=== PATIENT | male | born 1940 | race Caucasian/White ===

== ENCOUNTER 2018-08-03 12:15 | Outpatient (CLI) | payer MEDICARE, MEDICAID ==
[~2018-08-03 12:15] MED LIST: LEVO25TA2 PO
== END 2018-08-03 23:59 | disposition home or self-care (01) ==
LOC: CARD DIAG 12:15
PROVIDERS: ATTEND Internal Medicine Critical Care Medicine
DX: I08.8 Other rheumatic multiple valve diseases (principal); J98.4 Other disorders of lung; Z88.0 Allergy status to penicillin; Z91.041 Radiographic dye allergy status; Z91.011 Allergy to milk products; Z88.8 Allergy status to other drugs, medicaments and biological substances
CPT/HCPCS: 93306

== ENCOUNTER 2020-02-06 12:40 | Observation (INO) | payer MEDICARE, MEDICAID ==
[~2020-02-06] VITALS: Ht 170.2 cm; Wt 91.4 kg
[2020-02-06] MEDS ORDERED: aspirin 81mg tab.chew PO ONE (13:15)
[2020-02-06 13:27] LABS: BASOPHILS % (AUTO) 0.9 % (0-1); EOSINOPHILS # (AUTO) 0.3 X10'3 (0-0.9); EOSINOPHILS % (AUTO) 4.4 % (0-6); HEMATOCRIT 37.8 % (42.0-52.0); HEMOGLOBIN 12.7 g/dl (14.0-17.9); LYMPHOCYTES # (AUTO) 2.1 X10'3 (1.1-4.8); LYMPHOCYTES % (AUTO) 36.6 % (21-51); MEAN CORPUSCULAR HEMOGLOBIN 32.7 PG (27.0-31.0); MEAN CORPUSCULAR HGB CONC 33.6 g/dL (33.0-36.5); MEAN CORPUSCULAR VOLUME 97.4 FL (78-98); MEAN PLATELET VOLUME 8.3 FL (7.4-10.4); MONOCYTES # (AUTO) 0.4 X10'3 (0-0.9); MONOCYTES % (AUTO) 6.4 % (2-12); NEUTROPHILS % (AUTO) 51.7 % (42-75); PLATELET COUNT 209 X10'3 (140-440); RED BLOOD COUNT 3.88 X10'6 (4.70-6.10); WHITE BLOOD COUNT 5.8 X10'3 (4.5-11.0)
[2020-02-06] MEDS: nitroGLYCERIN 0.4mg SUBLingual tab SL PRN ×3 (13:28→13:52)
[2020-02-06] MEDS ORDERED: ondansetron 4mg rapidly disintigrating tab PO ONE (13:30)
[2020-02-06 13:44] LABS: ALANINE AMINOTRANSFERASE 27 U/L (12-78); ALBUMIN 3.5 G/DL (3.4-5.0); ALBUMIN/GLOBULIN RATIO 0.9 (1.1-1.5); ALKALINE PHOSPHATASE 62 IU/L (46-116); ANION GAP 7 (8-16); ASPARTATE AMINO TRANSFERASE 19 U/L (10-37); BILIRUBIN,TOTAL 0.3 MG/DL (0.1-1.0); BLOOD UREA NITROGEN 19 MG/DL (7-18); CALCIUM 8.6 MG/DL (8.5-10.1); CHLORIDE 104 MMOL/L (99-107); CREATININE 1.36 MG/DL (0.60-1.10); GLUCOSE 101 MG/DL (70-104); SODIUM 139 MMOL/L (135-145); TOTAL CARBON DIOXIDE 27.9 MMOL/L (24-32); TOTAL PROTEIN 7.2 G/DL (6.4-8.2); eGFR 50 ML/MIN
--- NOTE | 2020-02-06 13:50 | NUR ---
PT STARTES THAT HIS CHEST PAIN IS 5/10 BUT IS IMPROVING A LITTLW SINCE THE SECOND DOSE OF NITRO WAS GIVEN. dR. MAN WARRENEYS A THIRD DOSE OF NITRO, WILL CONTINUE TO MONITOR
[2020-02-06] MEDS ORDERED: HYDROcodone/acetaminophen 5mg/325mg tablet PO PRN (14:40)
[2020-02-06] MEDS ORDERED: morphine 2 MG/ML inj. syringe IV PRN ×2 (14:40)
[2020-02-06] MEDS ORDERED: mag hydrox/Alum hydrox/simeth 30ml oral suspension PO PRN (14:40)
[2020-02-06] MEDS ORDERED: nitroGLYCERIN 0.4mg SUBLingual tab SL PRN ×2 (14:40→15:45)
[2020-02-06] MEDS ORDERED: magnesium hydroxide 30ml (MOM) UD suspension PO PRN (14:40)
[2020-02-06] MEDS ORDERED: ondansetron/PF 4mg/2ml inj IV PRN (14:40)
[2020-02-06] MEDS ORDERED: acetaminophen 325mg tablet PO PRN ×2 (14:40)
[2020-02-06 15:04] LABS: D-DIMER 0.96 MG/L FEU (0-0.50)
[2020-02-06] MEDS ORDERED: GABA300C PO (15:22)
[2020-02-06] MEDS ORDERED: CYAN500T64 PO (15:22)
[2020-02-06] MEDS ORDERED: LEVO25TA7 PO (15:22)
[2020-02-06] MEDS ORDERED: CHOL20002 PO (15:22)
[2020-02-06] MEDS ORDERED: HYDR-4353 PO (15:22)
[2020-02-06] MEDS ORDERED: metoprolol tartrate 1mg/ml inj IV PRN (15:45)
[2020-02-06] MEDS ORDERED: aminophylline 250mg/10ml inj. IV PRN (15:45)
[2020-02-06] MEDS ORDERED: regadenoson 0.4mg/5ml syringe IV PRN (15:50)
[2020-02-06 16:15] VITALS: BP 140/70
--- NOTE | 2020-02-06 16:53 | NUR ---
PAGER ID: [phone] MESSAGE: [phone]. pt. Bola Cisneros. 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 do you want to order the overnight prep for his CTA of chest? please advise. Palmira [phone]
[2020-02-06] MEDS: gabapentin 300mg capsule PO SCH (17:11)
[2020-02-06] MEDS: normal saline 1000ml 1,000 ML IV SCH ×2 (17:12→22:04)
[2020-02-06 18:00] VITALS: BP 137/81
--- NOTE | 2020-02-06 18:42 | NUR ---
Problems reprioritized. Patient report given, questions answered & plan of care reviewed with ELISA Montilla.
[2020-02-06] MEDS ORDERED: diphenhydrAMINE 25mg capsule PO ONE (19:10)
[2020-02-06] MEDS: prednisone 10mg tablet PO PRN (20:59)
[2020-02-06 22:00] VITALS: BP 146/66
[2020-02-07] VITALS (13 sets, daily range): BP systolic 134–169; BP diastolic 66–85
[2020-02-07] MEDS: gabapentin 300mg capsule PO SCH ×2 (00:29→08:01)
[2020-02-07] MEDS: normal saline 1000ml 1,000 ML IV SCH ×2 (00:30→04:01)
[2020-02-07 01:34] LABS: BASOPHILS # (AUTO) 0.1 X10'3 (0-0.2); BASOPHILS % (AUTO) 1.3 % (0-1); EOSINOPHILS % (AUTO) 0.3 % (0-6); HEMATOCRIT 40.4 % (42.0-52.0); HEMOGLOBIN 13.6 g/dl (14.0-17.9); LYMPHOCYTES # (AUTO) 1.2 X10'3 (1.1-4.8); LYMPHOCYTES % (AUTO) 12.8 % (21-51); MEAN CORPUSCULAR HGB CONC 33.8 g/dL (33.0-36.5); MEAN CORPUSCULAR VOLUME 97.7 FL (78-98); MEAN PLATELET VOLUME 8.6 FL (7.4-10.4); MONOCYTES # (AUTO) 0.1 X10'3 (0-0.9); MONOCYTES % (AUTO) 0.9 % (2-12); NEUTROPHILS # (AUTO) 7.7 X10'3 (1.8-7.7); NEUTROPHILS % (AUTO) 84.7 % (42-75); PLATELET COUNT 197 X10'3 (140-440); RED BLOOD COUNT 4.13 X10'6 (4.70-6.10); RED CELL DISTRIBUTION WIDTH 12.7 % (11.5-14.5); WHITE BLOOD COUNT 9.1 X10'3 (4.5-11.0)
[2020-02-07 01:38] LABS: ALBUMIN 3.5 G/DL (3.4-5.0); ANION GAP 8 (8-16); BLOOD UREA NITROGEN 17 MG/DL (7-18); BUN/CREATININE RATIO 14.3 (5.4-32.0); CALCIUM 8.6 MG/DL (8.5-10.1); CHLORIDE 105 MMOL/L (99-107); CHOL/HDL RATIO 4.1 (0.00-4.99); CHOLESTEROL 232 MG/DL (0-200); CREATININE 1.19 MG/DL (0.60-1.10); GLUCOSE 113 MG/DL (70-104); HDL CHOLESTEROL 56 MG/DL (35-60); LDL CHOLESTEROL 137 MG/DL (50-100); SODIUM 140 MMOL/L (135-145); TRIGLYCERIDES 127 MG/DL (20-135); eGFR 59 ML/MIN
[2020-02-07 01:39] LABS: POTASSIUM 4.4 MMOL/L (3.5-5.1)
[2020-02-07] MEDS: prednisone 10mg tablet PO PRN ×2 (04:01→10:51)
--- NOTE | 2020-02-07 06:07 | NUR ---
Patient in room MED 313. I have received report from ELISA Newton and had the opportunity to ask questions and assume patient care.
--- NOTE | 2020-02-07 06:10 | NUR ---
Problems reprioritized. Patient report given, questions answered & plan of care reviewed with Palmira PÉREZ.
--- NOTE | 2020-02-07 06:26 | NUR ---
non food receiving clerk: I have reviewed and agree with interventions, assessments performed and documented by Benny.
[2020-02-07] MEDS ORDERED: levoTHYROXINE 25mcg tablet PO SCH (08:00)
[2020-02-07] MEDS ORDERED: vitamin D (cholecalciferol) 1,000 unit tablet PO SCH (08:00)
[2020-02-07] MEDS ORDERED: cyanocobalamin 500mcg tablet PO SCH (08:00)
[2020-02-07] MEDS ORDERED: aspirin 81mg tab.chew PO SCH (08:00)
[2020-02-07] MEDS ORDERED: iohexol 350MG/ML 100ml bottle IV ONE (11:30)
--- NOTE | 2020-02-07 13:01 | NUR ---
PAGER ID: [phone] MESSAGE: [phone] Daivd Amelia: Small, nonocclusive acute pulmonary embolism in a proximal left upper lobe pulmonary artery. per CT ELISA Lanza Ext [phone]
[2020-02-07] MEDS ORDERED: apixaban 5mg tablet PO SCH (13:45)
[2020-02-07] MEDS ORDERED: APIX5TAB3 PO (15:54)
--- NOTE | 2020-02-07 17:02 | NUR ---
Discharged. PIV out. Safe per Dr Agarwal for DC. Meds called in and educated on meds. Educated on PE and follow-up. Wheeled out to ride.
[2020-02-07] MEDS ORDERED: gabapentin 400mg capsule PO SCH (20:00)
[2020-02-11 09:12] LABS: ANTITHROMBIN ACTIVITY 110 % (75-135); ANTITHROMBIN ANTIGEN 95 % (72-124); PROTEIN S, FREE 112 % (57-157); PROTEIN S, TOTAL 97 % (60-150)
== END 2020-02-07 17:03 | disposition home or self-care (01) ==
LOC: ER 12:40 → ED HOLD 14:38 → MED 3N 15:57
PROVIDERS: ADMIT Internal Medicine; ATTEND Internal Medicine
DX: R07.89 Other chest pain (principal); R42 Dizziness and giddiness; E03.9 Hypothyroidism, unspecified; G89.29 Other chronic pain; N17.9 Acute kidney failure, unspecified; I10 Essential (primary) hypertension; I20.9 Angina pectoris, unspecified; Z90.49 Acquired absence of other specified parts of digestive tract; Z85.038 Personal history of other malignant neoplasm of large intestine; Z96.659 Presence of unspecified artificial knee joint; Z79.01 Long term (current) use of anticoagulants; Z79.899 Other long term (current) drug therapy; Z88.0 Allergy status to penicillin; Z91.011 Allergy to milk products; Z88.8 Allergy status to other drugs, medicaments and biological substances; Z91.048 Other nonmedicinal substance allergy status; R06.02 Shortness of breath; R00.1 Bradycardia, unspecified
CPT/HCPCS: 36415; 71045; 71275; 74175; 78452; 80048; 80053; 80061; 81479; 83880; 83891; 83894; 83898; 84484; 85025; 85300; 85301; 85303; 85305; 85306; 85379; 86146; 86147; 87081; 93005; 93017; 96360; 96361; 99285; A9500; G0378; J2785; J7030; J7512; Q0163; Q9967; 99284

== ENCOUNTER 2020-11-19 10:07 | Emergency (ER) | payer MEDICARE, MEDICAID ==
[~2020-11-19] VITALS: Ht 165.1 cm; Wt 90.9 kg
[~2020-11-19 10:07] MED LIST changes: +APIX5TAB3 PO; +CHOL20002 PO; +CYAN500T71 PO; +GABA300C PO; +HYDR-4353 PO; -LEVO25TA2 PO; +LEVO25TA7 PO
[2020-11-19] MEDS ORDERED: ondansetron/PF 4mg/2ml inj IV ONE (10:15)
[2020-11-19] MEDS ORDERED: normal saline 1000ML IV soln IVB ONE (10:15)
--- NOTE | 2020-11-19 10:52 | NUR ---
TO CT SCAN.
[2020-11-19 10:55] LABS: BASOPHILS % (AUTO) 0.3 % (0-1); EOSINOPHILS # (AUTO) 0.2 X10'3 (0-0.9); EOSINOPHILS % (AUTO) 3.2 % (0-6); HEMATOCRIT 37.8 % (42.0-52.0); HEMOGLOBIN 12.7 g/dl (14.0-17.9); LYMPHOCYTES # (AUTO) 1.8 X10'3 (1.1-4.8); LYMPHOCYTES % (AUTO) 32.6 % (21-51); MEAN CORPUSCULAR HGB CONC 33.5 g/dL (33.0-36.5); MEAN CORPUSCULAR VOLUME 98.5 FL (78-98); MEAN PLATELET VOLUME 8.1 FL (7.4-10.4); MONOCYTES # (AUTO) 0.4 X10'3 (0-0.9); NEUTROPHILS # (AUTO) 3.2 X10'3 (1.8-7.7); NEUTROPHILS % (AUTO) 56.9 % (42-75); PLATELET COUNT 193 X10'3 (140-440); RED BLOOD COUNT 3.84 X10'6 (4.70-6.10); RED CELL DISTRIBUTION WIDTH 12.7 % (11.5-14.5); WHITE BLOOD COUNT 5.6 X10'3 (4.5-11.0)
[2020-11-19 11:04] LABS: ALANINE AMINOTRANSFERASE 26 U/L (12-78); ALBUMIN 3.5 G/DL (3.4-5.0); ALBUMIN/GLOBULIN RATIO 1.1 (1.1-1.5); ALKALINE PHOSPHATASE 51 IU/L (46-116); ANION GAP 6 (8-16); ASPARTATE AMINO TRANSFERASE 27 U/L (10-37); BILIRUBIN,TOTAL 0.2 MG/DL (0.1-1.0); BLOOD UREA NITROGEN 14 MG/DL (7-18); BUN/CREATININE RATIO 11.7 (5.4-32.0); CALCIUM 8.2 MG/DL (8.5-10.1); CHLORIDE 106 MMOL/L (99-107); GLUCOSE 105 MG/DL (70-104); POTASSIUM 4.3 MMOL/L (3.5-5.1); SODIUM 140 MMOL/L (135-145); TOTAL CARBON DIOXIDE 28.3 MMOL/L (24-32); TOTAL PROTEIN 6.7 G/DL (6.4-8.2); eGFR 58 ML/MIN
[2020-11-19 11:07] LABS: TROPONIN I < 0.04 NG/ML (0.0-0.05)
[2020-11-19] MEDS ORDERED: ONDA4TAB6 PO (12:00)
[2020-11-19 12:40] VITALS: BP 150/78
== END 2020-11-19 13:05 | disposition home or self-care (01) ==
LOC: ER 10:07
DX: S13.4XXA Sprain of ligaments of cervical spine, initial encounter (principal); I10 Essential (primary) hypertension; R42 Dizziness and giddiness; R07.89 Other chest pain; Z88.0 Allergy status to penicillin; Z88.8 Allergy status to other drugs, medicaments and biological substances; Z91.011 Allergy to milk products; Z79.899 Other long term (current) drug therapy; V87.7XXA Person injured in collision between other specified motor vehicles (traffic), initial encounter; Y93.89 Activity, other specified; Y92.488 Other paved roadways as the place of occurrence of the external cause; Y99.8 Other external cause status
CPT/HCPCS: 36415; 70450; 71045; 72125; 80053; 84484; 85025; 96361; 96374; 99285; J2405; J7030; 99284